=== PATIENT | female | born 1960 | race Two or more races ===

== ENCOUNTER 2021-11-05 14:38 | Emergency (ER) | payer OTHER, SELFPAY ==
[2021-11-05 15:06] VITALS: BP 143/71; PULSE 64; RESP 18; TEMP 36.9; O2SAT 99
--- NOTE | 2021-11-05 16:25 | ED.GENADULT ---
HPI - General Adult General Chief complaint: Upper Respiratory Infection Stated complaint: sore throat ear pain and cough Source: patient and family Mode of arrival: ambulatory Limitations: language barrier (Chadian) History of Present Illness HPI narrative: Patient brought in by son with reports of left-sided otalgia since yesterday. Patient reports pain in left lateral neck. She has experienced chills and fatigue. No fever, nausea, vomiting, diarrhea, chest pain, shortness of breath. She does have an occasional productive cough of clear sputum. Pt lives with her son, his and their kids. Several family members recently tested positive for COVID. Pt has not taken a COVID test yet. Pt has received COVID vaccination. She does not smoke. No additional complaints or concerns. She has taken some OTC agents with mild improvement in her symptoms thereafter. Related Data Home Medications Medication Instructions Recorded Confirmed enalapril-hydrochlorothiazide 1 tablet PO DAILY 11/05/21 11/05/21 levothyroxine 50 mcg PO DAILY 11/05/21 11/05/21 simvastatin 20 mg PO DAILY 11/05/21 11/05/21 Allergies Allergy/AdvReac Type Severity Reaction Status Date / Time ibuprofen AdvReac Unknown Verified 11/05/21 15:39 Review of Systems Review of Systems: CONSTITUTIONAL: Reports fatigue and chills. Denies fever EYES: Denies visual changes, redness, or discharge. ENT: Reports left sided otalgia and left lateral neck pain. Denies rhinorrhea, congestion, sore throat CARDIOVASCULAR: Denies chest pain, palpitations, or edema. RESPIRATORY: Reports cough. Denies SOB GASTROINTESTINAL: Denies abdominal pain, nausea, vomiting, or diarrhea. GENITOURINARY: Denies dysuria or hematuria. SKIN: Denies rash or itching. MUSCULOSKELETAL: Denies back pain, joint pain, or myalgia. NEUROLOGIC: Denies headache, numbness, dizziness, or weakness. PSYCHIATRIC: Denies anxiety or depression. ON LICENSE OF [facility] Past Medical History Medical History (Updated 11/05/21 @ 16:37 by Eber Whitman, FATMATA, ) Hyperlipidemia Hypertension Surgical History Surgical History H/O varicose vein stripping Family History Family History Mother No pertinent past medical history Social History Social History (Updated 11/05/21 @ 16:29 by LOAN CedilloP, ) Smoking status: Never smoker Alcohol intake: never Substance use: never Living arrangements: with family Gender identity (if verbalized by the patient): Female Spiritual care concerns: No Exam Narrative: GENERAL: Well-appearing, well-nourished, and in no acute distress. HEAD: Normocephalic, atraumatic. EYES: PERRLA and EOMI. ENT: Nares clear, no rhinorrhea or epistaxis. Mucous membranes moist. Bilateral tonsillar swelling without marked erythema or exudate. Uvula is midline. Bilateral TMs pearly florian nonbulging, however there is middle ear fluid present NECK: Supple. No adenopathy or masses. No carotid bruits or JVD CHEST: Clear to auscultation. No respiratory distress. No wheezes rales or rhonchi HEART: Regular rate and rhythm. No murmur heard. Normal peripheral pulses. ABDOMEN: Soft, nontender, nondistended, normal active bowel sounds. EXTREMITIES: Normal range of motion. No edema. SKIN: Warm, dry, no rash. NEURO: No focal deficits. Alert and oriented x3. PSYCH: Normal mood and affect. Course Course Emergency Course: This is a 61-year-old female who presented with complaints of left ear pain after known exposure to COVID. COVID was positive. Her saturations are normal. I do not think CXR would be of much clinical utility. No significant cough. No adventitious lung sounds. We will have her follow-up outpatient for further evaluation and treatment and quarantine in alignment with CDC Guidelines. Will dc with flonase for middle ear fluid. She may taken tylenol and i
== END 2021-11-05 16:40 | disposition home or self-care (01) ==
PROVIDERS: Emergency Provider Nurse Practitioner; PCP Nurse Practitioner Family
DX: U07.1 COVID-19 (principal); E78.5 Hyperlipidemia, unspecified; I10 Essential (primary) hypertension
CPT/HCPCS: 87426; 99213; C9803; G0463